=== PATIENT | male | born 1955 | race Caucasian/White ===

== ENCOUNTER → 2025-03-08 | Outpatient (CLI) | payer MEDICARE, OTHER, SELFPAY ==
[2025-03-09 13:08] LABS: PSA, Free 1.66 ng/mL; PSA, Free % 30.5 % (.); PSA, Total Ultrasensitive 5.440 ng/mL (0.000-4.000)
== END | disposition home or self-care (01) ==
LOC: LAB 10:07
PROVIDERS: PCP Student in an Organized Health Care Education/Training Program; Referring Provider Urology; Visit Provider Urology
DX: R97.20 Elevated prostate specific antigen [PSA] (principal)
CPT/HCPCS: 36415; 84153; 84154